=== PATIENT | male | born 1940 | race Caucasian/White ===

== ENCOUNTER → 2016-12-16 | Outpatient (CLI) | payer MEDICARE, OTHER ==
[~2016-12-16] MED LIST: ASCO-262 PO; ASPI-586 PO; CALC-731 PO; CHOL2000 PO; CYAN10007 PO; FERR-84 PO; LISI20TA PO; MAGN250T35 PO; MAGN400C PO; OMG1KC PO; POTA99TA21 PO; RED600TA PO; SAWP1CAP PO; VITA400T9 PO
[2016-12-16 12:05] LABS: MEAN PLATELET VOLUME 9.6 FL (7.4-10.4); RED BLOOD COUNT 5.05 10^6/uL (4.35-5.85); RED CELL DISTRIBUTION WIDTH 13.3 % (10.0-14.5); WHITE BLOOD COUNT 7.1 10^3/uL (4.3-11.0)
[2016-12-16 12:34] LABS: ALBUMIN 4.2 G/DL (3.2-4.5); BILIRUBIN,TOTAL 0.8 MG/DL (0.1-1.0); CALCIUM 9.9 MG/DL (8.5-10.1); CREATININE SERUM 1.21 MG/DL (0.60-1.30); POTASSIUM 4.8 MMOL/L (3.6-5.0); TOTAL PROTEIN 6.9 G/DL (6.4-8.2)
[2016-12-16 12:55] LABS: THYROID STIMULATING HORMONE 1.81 UIU/ML (0.35-4.94)
--- NOTE | 2016-12-16 17:14 | Diagnostic Imaging Report ---
PA and lateral views of the chest. INDICATION: Cough. FINDINGS: The lungs are clear. The heart size is normal. No effusion or pneumothorax. The mediastinum and wilver appear unremarkable. There is flattening of the diaphragm suggestive of hyperinflation. IMPRESSION: Hyperinflated clear lungs. Dictated by: Dictated on workstation # [id number]
== END ==
LOC: RAD 10:55
PROVIDERS: ATTEND Nurse Practitioner Family
DX: E78.5 Hyperlipidemia, unspecified (principal); E55.9 Vitamin D deficiency, unspecified; R05 Cough; E53.8 Deficiency of other specified B group vitamins; Z79.899 Other long term (current) drug therapy
CPT/HCPCS: 36415; 71020; 80053; 80061; 82306; 82607; 83036; 84439; 84443; 84480; 85027

== ENCOUNTER 2016-12-24 05:36 | Outpatient (CLI) | payer MEDICARE, OTHER ==
[~2016-12-24] VITALS: Ht 182.9 cm; Wt 126.1 kg
[~2016-12-24 05:36] MED LIST changes: -ASPI-586 PO; -FERR-84 PO; -MAGN250T35 PO; -POTA99TA21 PO; -RED600TA PO
[2016-12-24] MEDS ORDERED: FERR-84 PO (10:21)
[2016-12-24] MEDS ORDERED: POTA99TA21 PO (10:21)
[2016-12-24] MEDS ORDERED: MAGN250T35 PO (10:21)
[2016-12-24] MEDS ORDERED: RED600TA PO (10:21)
[2016-12-24] MEDS ORDERED: ASPI-586 PO (10:21)
== END 2016-12-24 10:22 ==
LOC: PREOP 05:36
PROVIDERS: ATTEND Surgery
DX: Z01.818 Encounter for other preprocedural examination (principal); Z12.11 Encounter for screening for malignant neoplasm of colon

== ENCOUNTER → 2016-12-28 | Day surgery (SDC) | payer MEDICARE, OTHER ==
[~2016-12-28] VITALS: Ht 182.9 cm; Wt 126.1 kg
[~2016-12-28] MED LIST changes: +ASPI-586 PO; +FERR-84 PO; +FLUMAZENIL (ROMAZICON) 0.1 MG/ML 5 ML VIAL INJ PRN; +MAGN250T35 PO; +MIDAZOLAM 2 MG/2 ML (VERSED) VIAL ONE; +NALOXONE 0.4 MG/ML 1 ML (NARCAN) VIAL IVP PRN; +NS IV 500 ML 500 ML IV PRN; +NS IV 500 ML 500 ML ONE; +POTA99TA21 PO; +RED600TA PO; +fentaNYL INJECTION 100 MCG/2 ML AMP ONE
--- OUTSIDE RECORDS SUMMARY | 2016-12-28 11:00 | XMS REPORT | Continuity of Care Document ---
Author Author [facility] Organization [facility] Address Unknown Phone Unavailable Care Team Providers Care Science Instructor Name Role Phone LYLA AYALA DO PCP Insurance Providers Payer Name Policy Number Subscriber Name Relationship [employer] [id number] Daphne Bright 18 Self / Same As Patient [place] [employer] [id number] Daphne Bright 17 Self / Same As Patient Advance Directives Directive Response Recorded Date/Time Advance Directives No 12/24/16 10:15am Organ Donor No 12/24/16 10:15am Resuscitation Status Full Code 12/24/16 10:15am Problems No problem information available. Medications Current Home Medications Medication Dose Units Route Directions Days/Qty Instructions Start Date Lisinopril 20 Mg 20 Mg Oral Daily 08/09/12 Vitamin E Mixed 400 Unit 400 Unit Oral Daily 08/09/12 Ascorbate Calcium 500 Mg 1,000 Mg Oral Daily 08/09/12 Cholecalciferol 2,000 Unit 2,000 Unit Oral Daily 08/09/12 Calc/D3/Mag/Zn/Auto Striper/Patrice/[place] 1 Each 1 Each Oral Daily 08/09/12 Sawpalmtofrtxt/Zinc Picolinate 1 Each 1 Each Oral Daily 08/09/12 Fish Oil 1,000 Mg 1,000 Mg Oral Daily 08/09/12 Cyanocobalamin 1,000 Mcg 500 Mcg Oral Daily 08/09/12 Magnesium Oxide 250 Mg 250 Mg Oral Daily 12/24/16 Aspirin 81 Mg 81 Mg Oral Daily 12/24/16 Ferrous Sulfate 325 Mg 325 Mg Oral Daily 12/24/16 Red Yeast Rice 600 Mg 600 Mg Oral Daily 12/24/16 Potassium Gluconate 99 Mg 99 Mg Oral Daily 12/24/16 Past Home Medications Medication Directions Ordered Status Magnesium Oxide 400 Mg Capsule, 400 Mg Oral Daily 08/09/12 Discontinued Social History Social History Problem Response Recorded Date/Time Alcohol Use Denies Use 12/24/2016 10:15am Recreational Drug Use No 12/24/2016 10:15am Recent Foreign Travel No 12/24/2016 10:15am Recent Infectious Disease Exposure No 12/24/2016 10:15am Smoking Status Former Smoker 12/24/2016 10:15am Recent Hopitalizations No 12/24/2016 10:15am Query Response Start Date Stop Date Smoking Status Former Smoker Hospital Discharge Instructions No hospital discharge instructions. Plan of Care Discharge Date 12/24/16 10:22am Prescriptions See Medication Section Functional Status No functional status results. Allergies, Adverse Reactions, Alerts Allergen Type Severity Reaction Status Last Updated Penicillins ([id number]) Allergy HIVES Active 08/09/12 Immunizations No immunization records. Vital Signs Acute Vital Signs Vital Response Date/Time Height (Feet) 6 feet 12/24/2016 10:14am Height (Inches) 0.00 inches 12/24/2016 10:14am Height (Calculated Centimeters) 182.306048 cm 12/24/2016 10:14am Weight (Pounds) 278 pounds 12/24/2016 10:14am Weight (Ounces) 0.0 oz 12/24/2016 10:14am Weight (Calculated Grams) 901325.68 gm 12/24/2016 10:14am Weight (Calculated Kilograms) 126.490884 kilograms 12/24/2016 10:14am Calculated BMI 37.7 12/24/2016 10:14am Results Laboratory Results Test Name Result Units Flags Reference Collection Date/Time Result Date/ Time Comments White Blood Count 7.1 10^3/uL 4.3-11.0 12/16/2016 11:53am 12/16/2016 12 :09pm Red Blood Count 5.05 10^6/uL 4.35-5.85 12/16/2016 11:53am 12/16/2016 12 :09pm Hemoglobin 15.4 G/DL 13.3-17.7 12/16/2016 11:53am 12/16/2016 12:09pm Hematocrit 47 % 40-54 12/16/2016 11:53am 12/16/2016 12:09pm Mean Corpuscular Volume 93 FL 80-99 12/16/2016 11:53am 12/16/2016 12: 09pm Mean Corpuscular Hemoglobin 31 PG 25-34 12/16/2016 11:53am 12/16/2016 12:09pm Mean Corpuscular Hemoglobin Concent 33 G/DL 32-36 12/16/2016 11:53 12:09pm Red Cell Distribution Width 13.3 % 10.0-14.5 12/16/2016 11:53am 2016 12:09pm Platelet Count 213 10^3/uL 130-400 12/16/2016 11:53am 12/16/2016 12: 09pm Mean Platelet Volume 9.6 FL 7.4-10.4 12/16/2016 11:53am 12/16/2016 12: 09pm Sodium Level 139 MMOL/L 135-145 12/16/2016 11:53am 12/16/2016 12:34pm Potassium Level 4.8 MMOL/L 3.6-5.0 12/16/2016 11:53am 12/16/2016 12: 34pm Chloride Level 106 MMOL/L 98-107 12/16/2016 11:53am 12/16/2016 12:34pm Carbon Dioxide Level 23 MMOL/L 21-32 12/16/2016 11:53am 12/16/2016 12: 34pm Anion Gap 10 MMOL/L 5-14 12/16/2016 11:53am 12/16/2016 12:34pm Blood Urea Nitrogen 15 MG/DL -18 12/16/2016 11:53am 12/16/2016 12: 34pm Creatinine 1.21 MG/DL 0.60-1.30 12/16/2016 11:53am 12/16/2016 12:34pm BUN/Creatinine Ratio 12 12/16/2016 11:53am 12/16/2016 12:34pm Estimat Glomerular Filtration Rate 58 12/16/2016 11:53am 2016 12:34pm GFR INTERPRETIVE DATA UNITS FOR ESTIMATED GFR (eGFR): mL/min/1.73 M2 REFERENCE RANGE FOR ESTIMATED GFR (eGFR) eGFR NORMAL eGFR >60 MODERATELY DECREASED eGFR 30-59 SEVERLY DECREASED eGFR 15-29 KIDNEY FAILURE <15 (OR DIALYSIS) Glucose Level 98 MG/DL 70-105 12/16/2016 11:53am 12/16/2016 12:34pm Calcium Level 9.9 MG/DL 8.5-10.1 12/16/2016 11:53am 12/16/2016 12:34pm Total Bilirubin 0.8 MG/DL 0.1-1.0 12/16/2016 11:53am 12/16/2016 12: 34pm Alkaline Phosphatase 35 U/L L 40-136 12/16/2016 11:53am 12/16/2016 12: 34pm Aspartate Amino Transf (AST/SGOT) 16 U/L 5-34 12/16/2016 11:53am 2016 12:34pm Alanine Aminotransferase (ALT/SGPT) 17 U/L 0-55 12/16/2016 11:53am 12:34pm Total Protein 6.9 G/DL 6.4-8.2 12/16/2016 11:53am 12/16/2016 12:34pm Albumin 4.2 G/DL 3.2-4.5 12/16/2016 11:53am 12/16/2016 12:34pm Triglycerides Level 167 MG/DL H <150 12/16/2016 11:53am 12/16/2016 12: 34pm Cholesterol Level 259 MG/DL H < 200 12/16/2016 11:53am 12/16/2016 12: 34pm HDL Cholesterol 38 MG/DL L 40-60 12/16/2016 11:53am 12/16/2016 12:34pm LDL Cholesterol Direct 206 MG/DL H 1-129 12/16/2016 11:53am 12/16/2016 12 :34pm VLDL Cholesterol 33 MG/DL 5-40 12/16/2016 11:53am 12/16/2016 12:34pm Thyroid Stimulating Hormone (TSH) 1.81 UIU/ML 0.35-4.94 12/16/2016 11: 53am 12/16/2016 12:56pm Free Thyroxine 0.97 NG/DL 0.70-1.48 12/16/2016 11:53am 12/16/2016 12: 56pm Hemoglobin A1c 5.8 % 4.5-6.2 12/16/2016 11:53am 12/16/2016 3:43pm Total Triiodothyronine 1.3 ng/mL 0.6-1.8 12/16/2016 11:53am 12/17/2016 7:43am Test performed at [facility], CLIA# [id number] [address] [place] [address] Vitamin B12 Level 335 pg/mL 200-1000 12/16/2016 11:53am 12/17/2016 7: 44am Test performed at [facility], CLIA# [id number] [address] [place] [address] Vitamin D 25-Hydroxy 27 ng/mL L 30-100 12/16/2016 11:53am 12/17/2016 7: 43am Fluorescein dye has been shown to affect the Vitamin D assay and results may be falsely elevated. Patients that have had a procedure using this dye should be deferred 72 hours prior to collection or this assay. Test performed at [facility], CLIA# [id number] [address] [place] [address] Procedures No known history of procedures. Encounters Encounter Location Arrival/Admit Date Discharge/Depart Date Attending Provider Departed Clinic [facility] 12/24/16 5:36am 12/24/16 10: 22am BEVERLY MI MD Registered Clinic [facility] 12/16/16 10:55am KACIE AYALA DNP
--- OUTSIDE RECORDS SUMMARY | 2016-12-28 11:02 | XMS REPORT | Continuity of Care Document ---
Author Author [facility] Organization [facility] Address Unknown Phone Unavailable Care Team Providers Care Overcoil Stepper Name Role Phone LYLA AYALA DO PCP Insurance Providers Payer Name Policy Number Subscriber Name Relationship Wps Medicare [id number] Daphne Bright 18 Self / Same As Patient [place] [employer] [id number] Daphne Bright 17 Self / Same As [...] 2,000 Unit 2,000 Unit Oral Daily 08/09/12 Calc/D3/Mag/Zn/Work Adjustment Instructor/Patrice/[place] 1 Each 1 Each Oral Daily 08/09/12 [...] Type Severity Reaction Status Last Updated Penicillins ([id number]) Allergy HIVES Active 08/09/12 Immunizations No immunization records. Vital Signs Acute Vital Signs Vital Response Date/Time Height (Feet) 6 feet 12/24/2016 10:14am Height (Inches) 0.00 inches 12/24/2016 10:14am Height (Calculated Centimeters) 182.160266 cm 12/24/2016 10:14am Weight (Pounds) 278 pounds 12/24/2016 10:14am Weight (Ounces) 0.0 oz 12/24/2016 10:14am Weight (Calculated Grams) 663776.68 gm 12/24/2016 10:14am Weight (Calculated Kilograms) 126.809744 kilograms 12/24/2016 10:14am Calculated BMI 37.7 12/24/2016 [...] 12/16/2016 11:53am 12/17/2016 7:43am Test performed at [facility], CLIA# [id number] [address] [place] [address] Vitamin B12 Level 335 pg/mL 200-1000 12/16/2016 11:53am 12/17/2016 7: 44am Test performed at [facility], CLIA# [id number] [address] [place] [address] Vitamin D 25-Hydroxy 27 ng/mL L 30-100 12/16/2016 11:53am 12/17/2016 7: 43am Fluorescein dye has been shown to affect the Vitamin D assay and results may be falsely elevated. Patients that have had a procedure using this dye should be deferred 72 hours prior to collection or this assay. Test performed at [facility], CLIA# [id number] [address] [place] [address] Procedures No known history of procedures. Encounters Encounter Location Arrival/Admit Date Discharge/Depart Date Attending Provider Departed Clinic [facility] 12/24/16 5:36am 12/24/16 10: 22am BEVERLY MI MD Registered Clinic [facility] 12/16/16 10:55am KACIE AYALA DNP
--- NOTE | 2016-12-28 11:32 | Pre-Op Note & Conscious Sedat ---
Pre-Operative Progress Note H&P Reviewed The H&P was reviewed, patient examined and no changes noted. Date H&P Reviewed: Dec 28, 2016 Time H&P Reviewed: 11:32 Pre-Op Diagnosis: screening Conscious Sedation Pre-Proced ASA Class: 2 Airway Mallampati Classification: ([place] appropriate class) I. II. III, IV Lungs Heart ASA score ASA 1: a normal healthy patient ASA 2: a patient with a mild systemic disease (mid diabetes, controlled hypertension, obesity ASA 3: a patient with a severe systemic disease that limits activity (angina , COPD, prior Myocardial infarction) ASA 4: a patient with an incapacitating disease that is a constant threat to life (CHF, renal failure) ASA 5: a moribund patient not expected to survive 24 hrs. (ruptured aneurysm) ASA 6: a declared brain patient whose organs are being harvested. For emergent operations, add the letter E after the classification Grade 2 Sedation Plan: Discussed options with patient/fam Note The patient is an appropriate candidate to undergo the planned procedure, sedation, and anesthesia. The patient immediately re-assessed prior to indication. BEVERLY MI MD Dec 28, 2016 11:32 am
[2016-12-28 11:33] VITALS: BP 148/83
[2016-12-28] MEDS: fentaNYL INJECTION 100 MCG/2 ML AMP IVP PRN ×2 (12:33→12:38)
[2016-12-28] MEDS: MIDAZOLAM 2 MG/2 ML (VERSED) VIAL IVP PRN ×2 (12:35→12:40)
--- NOTE | 2016-12-28 12:49 | Progress Note-Post Operative ---
Post-Operative Progess Note Pre-Operative Diagnosis screening Post-Operative Diagnosis sigmoid diverticulosis Post-Op Procedure Note Date of Procedure: Dec 28, 2016 Name of Procedure: colonoscopy to cecum Anesthesia Type sedation BEVERLY MI MD Dec 28, 2016 12:49 pm
--- NOTE | 2016-12-28 12:50 | Discharge Inst-Simple/Standard ---
Discharge Inst-Standard Discharge Medications New, Converted or Re-Newed RX: Other Patient Instructions/Follow Up Plan of Care/Instructions/FU: follow up with his primary Activity as Tolerated: Yes Discharge Diet: No Restrictions BEVERLY MI MD Dec 28, 2016 12:50 pm
[2016-12-28 13:05] VITALS: BP 113/82
--- NOTE | 2016-12-28 13:21 | PROCEDURE REPORT ---
PROCEDURE PHYSICIAN: BEVERLY MI DATE OF PROCEDURE: 12/25/2016 PROCEDURE: Screening colonoscopy. SURGEON: Vladimir INDICATION FOR THE PROCEDURE: This gentleman came in for screening colonoscopy. He denied any family history of colon cancer or polyps. Informed consent was obtained after reviewing the procedure in detail. DESCRIPTION OF PROCEDURE: He was placed in left lateral decubitus position and his vital signs were monitored. Conscious sedation was achieved using Versed and fentanyl. Digital rectal examination was unremarkable. The colonoscope was then introduced into the rectum and advanced all the way up to the cecum. The scope was then withdrawn slowly and the mucosa examined in a systematic fashion. FINDINGS: 1. Very few, scattered sigmoid diverticula. 2. No polyps were found. 3. He tolerated the procedure well and was taken back to the nursing area in a stable condition. IMPRESSION: 1. Screening colonoscopy. 2. No polyps. Job ID: [id number] Dictated Date: 12/28/2016 12:49:05 Elevator Pilot Date: 12/28/2016 13:18:41 / amado DILLARD
[2016-12-28 13:35] VITALS: BP 135/87
[2016-12-28 13:50] VITALS: BP 135/87
== END ==
LOC: ENDO 10:57
PROVIDERS: ATTEND Surgery
DX: Z12.11 Encounter for screening for malignant neoplasm of colon (principal); K57.90 Diverticulosis of intestine, part unspecified, without perforation or abscess without bleeding